=== PATIENT | female | born 1975 ===

== ENCOUNTER 2017-04-13 08:00 | Outpatient (CLI) | payer SELFPAY | END 2017-04-13 08:01 | disposition home or self-care (01) | LOC: BICMAMMO 08:00 | PROVIDERS: ATTEND Nurse Practitioner | DX: N63.10 Unspecified lump in the right breast, unspecified quadrant (principal); N63.20 Unspecified lump in the left breast, unspecified quadrant | CPT/HCPCS: G0279 ==